=== PATIENT | female | born 1940 | race Caucasian/White ===

== ENCOUNTER 2016-12-15 09:47 | Inpatient (IN) ==
--- NOTE | 2016-12-15 11:11 | Diag Imaging Result Doc PS360 ---
FACIAL BONES W/O CONTRAST - 12/15/2016 INDICATION: fall with multiple contusions to face TECHNIQUE: A CT dose reduction protocol was used. COMPARISON: None FINDINGS: There is a small left-sided forehead soft tissue contusion to the scalp. No facial bone fractures. The sinuses are clear. There is note of a small torus palatinus, a benign variant. IMPRESSION: Forehead contusion. No fractures. Electronically signed by Cory Meade 12/15/2016 11:09 AM
--- NOTE | 2016-12-15 11:16 | Diag Imaging Result Doc PS360 ---
HEAD/C-SPINE W/O CONTRAST - 12/15/2016 INDICATION: fall with injury; no LOC; on ASA TECHNIQUE: A CT dose reduction protocol was used. COMPARISON: 01/15/2016, 12/19/2014 FINDINGS: Head CT: There is a small anterior scalp contusion at the frontal scalp. No fractures. No intracranial mass or hemorrhage. The ventricles and sulci are normal. Cervical spine: There is no fracture or subluxation. There is mild degenerative disc disease notably at C5-6 and C6-7. There is also moderate multilevel facet degeneration. No central canal stenosis. There is heavy calcification of the left carotid bulb as was documented on the neck angiogram from 2014. IMPRESSION: Forehead scalp contusion. Otherwise no acute injuries. Electronically signed by Cory Meade 12/15/2016 11:13 AM
[2016-12-15 12:05] LABS: MANUAL DIFF NEEDED? NO
[2016-12-15 12:13] LABS: EOS# 0.01 X1000 (0.0-0.7); EOS% 0.1 % (0.0-10.0); HEMATOCRIT 35.3 % (37.0-47.0); HEMOGLOBIN 13.3 g/dL (12.0-16.0); IMM GRAN# 0.04 X1000 (0.0-0.04); IMM GRAN% 0.3 % (0.0-0.5); LYMPH# 0.43 X1000 (1.2-3.4); LYMPH% 2.9 % (20.5-51.1); MCH 29.6 PG (27-31); MCHC 37.7 g/dL (33-37); MCV 78.6 FL (81-99); MONO# 1.32 X1000 (0.11-0.59); MONO% 8.8 % (1.7-9.3); MPV 9.6 FL (7.4-10.4); NEUT% 87.9 % (42.2-75.2); PLT 180 X1000 (130-400); RBC 4.49 XMIL (4.2-5.4)
--- NOTE | 2016-12-15 12:29 | PROVIDER DOCUMENTATION ---
This chart was entered by Snehal Villagomez Scribe, acting as scribe for Marii Birmingham PA. HPI-General Adult - General Source: patient - History of Present Illness -Gen Adult Nature of Presenting Problems: 76 yo F presents to the ER with complaint of a fall last night. Denies any dizziness or LOC, states she felt weak after the fall but could get up and go back to bed. Has L sided facial pain, swelling, and bruising. States she has had a kidney infection recently and is being treated with Cipro, has nausea associated with the kidney infection, not fall. Denies any blurry vision. Pt states she feels like she is dehydrated. Location of Pain/Injury: reports: face, neck Onset/Duration: reports: last night <Marii Birmingham - Last Filed: 12/15/16 13:17> - General Source: patient <Manolo De León - Last Filed: 12/16/16 13:16> - General Chief Complaint: Fall Stated Complaint: FALL Time Seen by Provider: 12/15/16 10:41 Allergies/Adverse Reactions: Patient Allergies Allergy/AdvReac Type Severity Reaction Status Date / Time No Known Allergies Allergy Verified 01/15/16 09:08 Home Medications: Home Medication List Medication Instructions Recorded Confirmed Last Taken Type Biotin 1,000 cap PO DAILY 05/26/12 12/15/16 12/19/14 08:00 History Cholecalciferol (Vit D3) [Vitamin 1,000 unit PO DAILY 05/26/12 12/15/16 08:00 History D3] Fish Oil/Dha/Epa [Fish Oil 1,200 1 cap PO DAILY 05/26/12 12/15/16 12/19/14 08: 00 History mg Fish Oil] Multivitamin [Multi-Day Vitamins] 1 tab PO DAILY 05/26/12 12/15/16 12/19/14 08: 00 History Lovastatin 40 mg PO DAILY 12/19/14 12/15/16 12/19/14 21:00 History Aspirin 81 mg PO DAILY #0 chewtab 12/21/14 12/15/16 Unknown Rx Esomeprazole [Nexium] 40 mg PO DAILY #0 capsule 12/21/14 12/15/16 Unknown Rx Gabapentin [Neurontin] 300 mg PO DAILY #0 capsule 12/21/14 12/15/16 Unknown Rx Magnesium 250 mg PO DAILY 01/15/16 12/15/16 Unknown History Oxybutynin [Ditropan] 10 mg PO DAILY 01/15/16 12/15/16 Unknown History Alprazolam [Alprazolam] 1 mg PO QHS 12/15/16 12/15/16 12/15/16 History Estradiol Vaginal Cream [Estrace 1 gm TOP DAILY 12/15/16 12/15/16 Unknown History Vaginal Cream] Losartan [Cozaar] 100 mg PO DAILY 12/15/16 12/15/16 12/15/16 History Meloxicam 7.5 mg PO DAILY 12/15/16 12/15/16 Unknown History Triamterene/Hydrochlorothiazid 1 each PO DAILY 12/15/16 12/15/16 Unknown History [Triamterene-Hctz 37.5-25 mg Cp] Triamterene/Hydrochlorothiazid 37.5 each PO DAILY 12/15/16 12/15/16 12/15/16 History [Triamterene-Hctz 37.5-25 mg Cp] Review of Systems - Adult - REVIEW OF SYSTEMS - ADULT Constitutional: denies: chills, fever Eyes: denies: decreased vision, blurred vision Ears, Nose, Mouth & Throat: reports: no symptoms reported Cardiovascular: denies: chest pain, palpitations Respiratory: denies: cough, shortness of breath Gastrointestinal: reports: nausea. denies: diarrhea, vomiting Genitourinary: reports: no symptoms reported Musculoskeletal: reports: joint pain, neck pain Integumentary: reports: no symptoms reported Neurological: denies: dizziness/vertigo, headache/migraines Psychiatric: reports: no symptoms reported Endocrine: reports: no symptoms reported Hematologic/Lymphatic: reports: no symptoms reported Allergic/Immunologic: reports: no symptoms reported All Other Systems: Reviewed and Negative <Marii Birmingham - Last Filed: 12/15/16 13:17> - REVIEW OF SYSTEMS - ADULT Constitutional: reports: no symptoms reported <Manolo De León - Last Filed: 12/16/16 13:16> Past History - Adult - PAST MEDICAL HISTORY-ADULT Review of Records: reports: Nursing Assessment Review, Medications Reviewed Cardiovascular: reports: HTN - PRIOR SURGERIES/PROCEDURES Surgical/Procedure History: reports: cholecystectomy, other (artery repair) - IMMUNIZATION STATUS Childhood Immunizations: See Nurse Assessment Flu Vaccine: See Nurse Assessment - FAMILY HISTORY Family History: reviewed, not pertinent <Marii Birmingham - Last Filed: 12/15/16 13:17> - PAST MEDICAL HISTORY-ADULT Review of Records: reports: Old Records Reviewed, Nursing Assessment Review, Medications Reviewed <Manolo De León - Last Filed: 12/16/16 13:16> Physical Exam-General - PHYSICAL EXAM-ADULT Initial Vital Signs Reviewed: Yes - CONSTITUTIONAL General Appearance: alert, no apparent distress - EYES Eyes: PERRL/EOMI, pink conjunctivae - HEAD, EARS, NOSE, MOUTH & THROAT HENMT: TMs normal, pharynx normal, other (L sided facial tenderness and swelling , full jaw ROM) - NECK Neck: supple, normal inspection, C-spine tenderness - RESPIRATORY Respiratory: no respiratory distress, no accessory muscle use - CARDIOVASCULAR Cardiovascular: normal peripheral pulses, regular rate, rhythm - GASTROINTESTINAL (ABDOMEN) Abdominal Exam: normal bowel sounds, non tender, soft - MUSCULOSKELETAL Back Exam: no CVA tenderness, no vertebral tenderness Extremity: normal range of motion, non-tender, normal gait, normal inspection - SKIN Integumentary: warm/dry, ecchymosis (L frontal and orbital) - NEUROLOGIC Neurologic: prior authorization technician II-XII nml as tested, grossly normal, no motor/sensory deficits - PSYCHIATRIC Psych/Mental Status: normal mood/affect, normal thought content, normal thought process, oriented x 3 <Marii Birmingham - Last Filed: 12/15/16 13:17> - PHYSICAL EXAM-ADULT Initial Vital Signs Reviewed: Yes - CONSTITUTIONAL General Appearance: appears well <Manolo De León - Last Filed: 12/16/16 13:16> Progress - PLAN OF CARE/RESULTS Progress/Plan/Lab Results: Vital Signs - 8 hr 12/15/16 09:50 Temperature 98 F Pulse Rate 64 Respiratory Rate 18 Blood Pressure 149/91 O2 Sat by Pulse Oximetry 94 L Orders Category Date Time Status FACIAL BONES W/O CONTRAST [CT] Stat Exams 12/15/16 10:10 Completed HEAD/C-SPINE W/O CONTRAST [CT] Stat Exams 12/15/16 10:10 Completed Result Diagrams: 12/15/16 11:55 12/15/16 11:55 - CT/MRI 1 CT Study: Cervical Spine, Head Impression: See EMR Report (forehead scalp contusion. Otherwise no acute injuries. -per Dr. Meade) - CONSULTS/PCP/HOSPITALIST Notification #1 *Consult/PCP/Hospitalist*: Dr. Shearer Time Discussed: 13:17 Reason/Comments: hyponatremia Consult Disposition: Admit <Marii Birmingham - Last Filed: 12/15/16 13:17> - PLAN OF CARE/RESULTS Progress/Plan/Lab Results: Laboratory Results - last 24 hr 12/15/16 12/15/16 12/15/16 11:55 11:55 13:00 Serum Osmolality 219 L TSH 0.93 Free T4 1.42 Urine Source CLEAN CATCH Urine Color YELLOW Urine Clarity CLEAR Urine pH 7.0 Ur Specific [place] 1.000 Urine Protein TRACE A Urine Ketones NEGATIVE Urine Blood 4+ Urine Nitrite NEGATIVE Urine Bilirubin NEGATIVE Urine Urobilinogen NORMAL Urine Microscopic RBC <10 Urine WBC NEGATIVE Urine Microscopic WBC <10 Ur Epithelial Cells <10 Small Round Cells TRANSITIONAL PRESENT Urine Bacteria NEGATIVE Urine Osmolality Ur Random Sodium Urine Glucose NEGATIVE 12/15/16 12/15/16 13:00 13:00 Serum Osmolality TSH Free T4 Urine Source Urine Color Urine Clarity Urine pH Ur Specific [place] Urine Protein Urine Ketones Urine Blood Urine Nitrite Urine Bilirubin Urine Urobilinogen Urine Microscopic RBC Urine WBC Urine Microscopic WBC Ur Epithelial Cells Small Round Cells Urine Bacteria Urine Osmolality 236 L Ur Random Sodium 57 Urine Glucose Orders Category Date Time Status Admit - [facility] Routine AdmDCTranf 12/15/16 13:44 Ordered Activity - Bed Rest with BRP ORDERED Care 12/15/16 13:44 Active Call Admitting on Arrival AT ADMISSION Care 12/15/16 13:44 Completed Neurological Check PRN Care 12/15/16 13:44 Active Saline Loc NOW Care 12/15/16 12:39 Completed Vital Signs Order Q 4-HR ASSESS Care 12/15/16 13:44 Active FACIAL BONES W/O CONTRAST [CT] Stat Exams 12/15/16 10:10 Completed HEAD/C-SPINE W/O CONTRAST [CT] Stat Exams 12/15/16 10:10 Completed CBC WITH DIFF [HEME] Stat Lab 12/15/16 11:55 Completed CMP [COMPREHENSIVE METABOLIC PANEL] [CHEM] Stat Lab 12/15/16 11:55 Completed FREE T4 Stat Lab 12/15/16 11:55 Completed MAGNESIUM [CHEM] Stat Lab 12/15/16 11:55 Completed TSH Stat Lab 12/15/16 11:55 Completed UR SODIUM [URCHEM] Stat Lab 12/15/16 13:[address] W/POSS RFLX CULT [URINALYSIS] Stat Lab 12/15/16 13:00 Completed 0.9% Sodium Chloride Inj [Ns] 1,000 ml Med 12/15/16 12:40 Discontinued IV 125 mls/hr Transfer/Admit Order [TRANSFER] Routine Transfer 12/15/16 13:45 Completed Result Diagrams: 12/16/16 04:25 12/16/16 04:25 <Manolo De León - Last Filed: 12/16/16 13:16> Departure - Departure Date of Disposition Decision: 12/15/16 Time of Disposition Decision: 12:30 Certified Medical Emergency: Emergent <Marii Birmingham - Last Filed: 12/15/16 13:17> - Departure Date of Disposition Decision: 12/15/16 Time of Disposition Decision: 12:30 Certified Medical Emergency: Emergent - Critical Care Note This patient required my direct & personal management of CC.: No <Manolo De León - Last Filed: 12/16/16 13:16> - Departure DIAGNOSIS: Weakness, Hyponatremia Carotid stenosis Qualifiers: Laterality: left Qualified Code(s): I65.22 - Occlusion and stenosis of left carotid artery Fall Qualifiers: Encounter type: initial encounter Qualified Code(s): W19.XXXA - Unspecified fall, initial encounter Facial contusion Qualifiers: Encounter type: initial encounter Qualified Code(s): S00.83XA - Contusion of other part of head, initial encounter UTI (urinary tract infection) Qualifiers: Urinary tract infection type: acute cystitis Disposition: ADMITTED INPATIENT 09 Condition: Stable This chart was documented by the indicated scribe, (Snehal Villagomez Scribe) and accurately reflects the services I performed and decisions made by me, Marii Birmingham PA, as attested by the provider's signature.
[2016-12-15 12:33] LABS: AGAP 8; ALBUMIN 4.1 g/dL (3.5-5.0); ALKALINE PHOSPHATASE 83 U/L (32-104); BUN 9 mg/dL (8-22); CALCIUM 9.1 mg/dL (8.8-10.2); CHLORIDE 71 mmol/L (98-107); COSMO 216; GOT 137 U/L (10-30); GPT 39 U/L (10-36); POTASSIUM 3.6 mmol/L (3.5-5.1); TCO2 27 mmol/L (25-35); TOTAL PROTEIN 6.8 g/dL (6.3-8.3)
[2016-12-15 12:34] LABS: SODIUM 106 mmol/L (136-145)
[2016-12-15] MEDS ORDERED: NS 1,000 ML IV ONE (12:40)
[2016-12-15 13:16] LABS: FREE T4 1.42 ng/dL (0.93-1.70)
[2016-12-15 13:30] LABS: URINE CULTURE PL NEEDED? NO
[2016-12-15 13:58] LABS: BILIRUBIN URINE NEGATIVE (NEGATIVE); BLOOD URINE 4+ (NEGATIVE); CLARITY CLEAR (CLEAR); COLOR YELLOW; GLUCOSE URINE NEGATIVE (NEGATIVE); LEUKOCYTES URINE NEGATIVE (NEGATIVE); NITRITE URINE NEGATIVE (NEGATIVE); PROTEIN URINE TRACE mg/dL (NEGATIVE); UROBILINOGEN URINE NORMAL
[2016-12-15 14:09] LABS: URINE SOURCE CLEAN CATCH
[2016-12-15 14:10] LABS: URINE EPITHELIAL CELLS <10 /HPF (<10); URINE RBC <10 /HPF (<10); URINE SMALL ROUND CELLS TRANSITIONAL PRESENT; URINE WBC <10 /HPF (<10)
[2016-12-15] MEDS ORDERED: MAGNESIUM SULFATE 2 GM/S.W.I. 2 GM/50 ML IVPB IV ONE (17:01)
[2016-12-15] MEDS ORDERED: PROTONIX IV SCH (18:00)
[2016-12-15] MEDS ORDERED: SODIUM CHLORIDE 0.9% INJ SCH (18:00)
[2016-12-15] MEDS: ZOFRAN IV PRN (18:26)
[2016-12-15] MEDS: ROCEPHIN 1 GM/NS 1 GM/50 ML IVPB IV SCH (18:28)
[2016-12-15 19:19] LABS: AGAP 10; BUN 7 mg/dL (8-22); CALCIUM 8.4 mg/dL (8.8-10.2); CHLORIDE 68 mmol/L (98-107); COSMO 210; POTASSIUM 3.2 mmol/L (3.5-5.1); SODIUM 103 mmol/L (136-145); TCO2 25 mmol/L (25-35)
--- NOTE | 2016-12-15 19:26 | HISTORY AND PHYSICAL ---
CHIEF COMPLAINT: Fall. HISTORY OF PRESENT ILLNESS: This is a 76-year-old female with a history of hypertension and gastroesophageal reflux disease. She presented to the emergency room after falling. She stated that she got up through the night and fell. She was unable to get up and get back to bed. Therefore, she called for help and was brought in by EMS. She denied any loss of consciousness. Of note, the patient was seen in the emergency room on the for nausea and vomiting and urinary tract infection symptoms. She complained of left flank pain as well as frequency and urgency. Urinalysis was performed as well as culture. She was prophylactically sent home on Cipro with instructions to follow up with her primary care physician. She stated that since the emergency room visit she has been increasingly weak, having trouble holding her balance, being forgetful. She is confused at this time and she is unable to give of an accurate account of the events of last week. Family members were not present so it is unknown exactly how much she was vomiting and how much p.o. intake she was able to obtain. She was found to have a sodium of 106 with a chloride 71 and a magnesium of 1.3. She was given gentle hydration and is being admitted for further evaluation and treatment. PAST MEDICAL HISTORY: Hypertension, frequent UTI, gastroesophageal reflux disease. PAST SURGICAL HISTORY: Cholecystectomy, cataract removal. SOCIAL HISTORY: She denies alcohol, tobacco, and illicit drug use. She does have family members that are close by and very active in her care. ALLERGIES: No known drug allergies. HOME MEDICATIONS: Triamterene hydrochlorothiazide 37.5/25 one daily, Meloxicam daily, aspirin 81 mg daily, magnesium 250 p.o. daily, Nexium 40 daily, Neurontin 300 mg daily, Xanax 1 mg at bedtime, and Cozaar 100 mg daily. REVIEW OF SYSTEMS: Unable to obtain from the patient as she is confused. PHYSICAL EXAMINATION: GENERAL: This is a 76-year-old female, who is lying in the bed, in no distress. VITAL SIGNS: Blood pressure is 161/77, heart rate 78, respirations are 18, temperature is 99.3 degrees oral, with room air saturation of 98%. HEENT: Head is normocephalic, atraumatic. Pupils equal, round, react to light. EOMs are intact. Sclerae are anicteric. Mucous membranes are dry. NECK: Supple with trachea midline. CARDIOVASCULAR: Regular rate and rhythm. S1 and S2 appreciated. PULMONARY: Breath sounds are clear. No increased work of breathing noted. GASTROINTESTINAL: Abdomen is soft, nontender, nondistended with bowel sounds in all 4 quadrants. MUSCULOSKELETAL: Good range of motion to joints. SKIN: Warm and dry with bruises noted to her left frontal and orbital area, as well as her left arm, her left shoulder, and her left side. NEUROLOGIC: She is oriented to herself and her family members only. DIAGNOSTICS: Sodium is 106, potassium 3.6, chloride 71, CO2 27, BUN 9, creatinine 0.8, with a glucose of 121, magnesium is 1.3. Total bilirubin 1.30, with AST of 137, ALT of 39. TSH is 0.93. CT of the head and cervical spine and facial bones reveal no acute processes. Urine culture from December 13 is growing gram-negative rods. ASSESSMENT: 1. Hyponatremia. 2. Fall. 3. Confusion, most likely secondary to #1. 4. Hypomagnesemia. 5. Urinary tract infection with gram-negative rods. 6. Elevated liver function tests. PLAN: She was admitted to the floor and placed on telemetry. She is confused at this time. She is very unsteady on her feet. We will repeat her BMP. If sodium has not improved greatly then she will be moved to ICU for closer monitoring. In talking to the patient, she does take diuretics and we are unsure exactly how long she was vomiting or if she has taken any extra medications. We will hold all of her p.o. medications at present. Give hydration. We will have her NPO except for ice chips. Zofran for nausea. We will give Protonix. We will monitor her electrolytes and replete as appropriate. We will start Rocephin for antibiotic coverage and once urine culture and sensitivities are finalized then antibiotics may be changed as appropriate according to sensitivity results. We will get hyponatremia labs. For DVT prophylaxis, will use SCDs, holding off on any anticoagulation as she has been falling quite often. For GI prophylaxis, Protonix. Further treatments pending hospital course. Dictated by MILA Durbin for Russel Shearer MD cc: MILA Durbin MD
[2016-12-15] MEDS: NACL 3% 500 ML IV SCH (19:50)
[2016-12-15] MEDS: XANAX PO SCH (20:12)
[2016-12-15] MEDS: NS 1,000 ML IV SCH (20:22)
[2016-12-16 01:42] LABS: AGAP 8; BUN 6 mg/dL (8-22); CALCIUM 8.5 mg/dL (8.8-10.2); CHLORIDE 72 mmol/L (98-107); COSMO 215; POTASSIUM 3.1 mmol/L (3.5-5.1); TCO2 26 mmol/L (25-35)
[2016-12-16 01:46] LABS: SODIUM 106 mmol/L (136-145)
[2016-12-16] MEDS: NS 1,000 ML IV SCH ×2 (06:09→13:59)
[2016-12-16 06:50] LABS: HEMATOCRIT 34.6 % (37.0-47.0); HEMOGLOBIN 12.9 g/dL (12.0-16.0); MCH 29.3 PG (27-31); MCHC 37.3 g/dL (33-37); MCV 78.6 FL (81-99); MPV 10.1 FL (7.4-10.4); RBC 4.4 XMIL (4.2-5.4)
[2016-12-16 06:53] LABS: AGAP 10; ALBUMIN 3.8 g/dL (3.5-5.0); ALKALINE PHOSPHATASE 83 U/L (32-104); BUN 6 mg/dL (8-22); CALCIUM 8.3 mg/dL (8.8-10.2); CHLORIDE 73 mmol/L (98-107); COSMO 217; GOT 143 U/L (10-30); GPT 49 U/L (10-36); MAGNESIUM 1.8 mg/dL (1.5-2.7); TCO2 25 mmol/L (25-35); TOTAL PROTEIN 5.9 g/dL (6.3-8.3)
[2016-12-16 06:55] LABS: SODIUM 108 mmol/L (136-145)
[2016-12-16] MEDS ORDERED: KLOR-CON PO ONE (07:03)
[2016-12-16] MEDS ORDERED: NS 1,000 ML IV SCH (07:03)
--- NOTE | 2016-12-16 07:27 | Diag Imaging Result Doc PS360 ---
EXAM: CHEST-PORTABLE HISTORY: Hyponatremia TECHNIQUE: Portable AP COMPARISON: 02/18/2015 FINDINGS: The lungs are well expanded. The heart is mildly prominent. The vessels are not distended. No consolidation. No pleural effusions identified. IMPRESSION: Borderline mildly prominent heart. Electronically signed by Jordan Caballero 12/16/2016 7:25 AM
[2016-12-16] MEDS: NACL 3% 500 ML IV SCH (09:13)
[2016-12-16] MEDS: NORVASC PO SCH (11:05)
--- NOTE | 2016-12-16 11:55 | Diag Imaging Result Doc PS360 ---
EXAM: US ABDOMEN-COMPLETE HISTORY: Transaminasemia; Severe Hyponatremia TECHNIQUE: COMPARISON: None. FINDINGS: No aneurysmal dilatation to the abdominal aorta. Normal pancreatic head and body. Pancreatic tail is obscured. Normal inferior vena cava. I believe there is fatty infiltration of the liver. No focal hepatic abnormality. The gallbladder has been removed. The common bile duct measures 4 mm. Normal right kidney. No hydronephrosis. Normal spleen. The left kidney is atrophic possibly measuring only 5.3 cm in length. However, there appears to be a 2.5 cm mass on the lower pole. No hydronephrosis. IMPRESSION: 1.Cholecystectomy 2.Possible left lower renal mass. A CT is suggested. Electronically signed by Jordan Caballero 12/16/2016 11:52 AM
[2016-12-16 13:23] LABS: AGAP 10; BUN 6 mg/dL (8-22); CALCIUM 8.2 mg/dL (8.8-10.2); CHLORIDE 80 mmol/L (98-107); COSMO 234; POTASSIUM 3.2 mmol/L (3.5-5.1); TCO2 27 mmol/L (25-35)
[2016-12-16 13:24] LABS: SODIUM 116 mmol/L (136-145)
--- NOTE | 2016-12-16 14:22 | Diag Imaging Result Doc PS360 ---
EXAM: THORAX/ABDOMEN/PELVIS HISTORY: Renal Mass TECHNIQUE: CT chest abdomen and pelvis with intravenous contrast. COMPARISON: Compared to a chest from 03/25/2011 and an abdomen and pelvis from 01/23/2016. FINDINGS: Chest: No pleural effusions. The heart is mildly enlarged. No thoracic aortic aneurysm or dissection. No enlarged mediastinal or hilar lymph nodes. There are several small calcified subcarinal lymph nodes. Minimal scarring and atelectasis in the lower lungs. No consolidation. No bronchiectasis. Minimal emphysematous changes. I do not identify a lung mass. Abdomen and pelvis: The gallbladder has been removed. There is fatty infiltration of the liver. Normal spleen, pancreas, and adrenal glands. Mild perinephric inflammation. The upper and mid left kidney are markedly atrophic. Normal parenchyma inferiorly. This is normal parenchyma gives the appearance of a mass on ultrasound. No renal mass is identified. Normal enhancement of the right kidney. No hydronephrosis. No aortic aneurysm. No bowel obstruction. There are scattered distal colonic diverticula. Normal appendix. No abscess. The urinary bladder is distended and appears normal. The uterus is small. No pelvic mass. IMPRESSION: Chest: 1. Cardiomegaly 2. Minimal emphysematous changes 3. Basilar atelectasis and/or fibrosis Abdomen and pelvis: 1. Cholecystectomy 2. Fatty infiltration of liver 3. Atrophic upper and mid left kidney. No renal mass. 4. Diverticulosis Electronically signed by Jordan Caballero 12/16/2016 2:20 PM
[2016-12-16] MEDS ORDERED: TYLENOL PO PRN (16:35)
[2016-12-16] MEDS: ROCEPHIN 1 GM/NS 1 GM/50 ML IVPB IV SCH (17:24)
[2016-12-16] MEDS ORDERED: NORCO-5 PO PRN (18:44)
[2016-12-16] MEDS: PROTONIX PO SCH (20:15)
[2016-12-16] MEDS: XANAX PO SCH (20:15)
[2016-12-17 09:14] LABS: AGAP 9; ALBUMIN 3.6 g/dL (3.5-5.0); ALKALINE PHOSPHATASE 77 U/L (32-104); BUN 7 mg/dL (8-22); CALCIUM 8.9 mg/dL (8.8-10.2); CHLORIDE 88 mmol/L (98-107); COSMO 246; GOT 93 U/L (10-30); GPT 51 U/L (10-36); POTASSIUM 3.2 mmol/L (3.5-5.1); SODIUM 123 mmol/L (136-145); TCO2 26 mmol/L (25-35); TOTAL PROTEIN 6.3 g/dL (6.3-8.3)
[2016-12-17] MEDS: NORVASC PO SCH (11:26)
[2016-12-17] MEDS ORDERED: KLOR-CON PO ONE (13:01)
[2016-12-17] MEDS: ZOFRAN IV PRN (14:00)
[2016-12-17] MEDS: NS 1,000 ML IV SCH (15:53)
[2016-12-17] MEDS: ROCEPHIN 1 GM/NS 1 GM/50 ML IVPB IV SCH (17:46)
[2016-12-17] MEDS: XANAX PO SCH (20:34)
[2016-12-17] MEDS: PROTONIX PO SCH (20:34)
[2016-12-18 06:17] LABS: MANUAL DIFF NEEDED? NO
[2016-12-18 06:23] LABS: BASO% 0.1 % (0.0-0.8); EOS# 0.08 X1000 (0.0-0.7); EOS% 1.2 % (0.0-10.0); HEMATOCRIT 36.1 % (37.0-47.0); HEMOGLOBIN 12.3 g/dL (12.0-16.0); IMM GRAN# 0.03 X1000 (0.0-0.04); IMM GRAN% 0.4 % (0.0-0.5); LYMPH# 0.69 X1000 (1.2-3.4); LYMPH% 10.2 % (20.5-51.1); MCH 28.9 PG (27-31); MCHC 34.1 g/dL (33-37); MCV 84.7 FL (81-99); MONO# 0.88 X1000 (0.11-0.59); MPV 9.6 FL (7.4-10.4); NEUT% 75.1 % (42.2-75.2); PLT 196 X1000 (130-400); RBC 4.26 XMIL (4.2-5.4)
[2016-12-18 06:45] LABS: ALBUMIN 3.5 g/dL (3.5-5.0); POTASSIUM 3.7 mmol/L (3.5-5.1); TOTAL BILIRUBIN 0.6 mg/dL (0.20-1.00); TOTAL PROTEIN 5.9 g/dL (6.3-8.3)
[2016-12-18] MEDS: NEURONTIN PO SCH (09:09)
[2016-12-18] MEDS: NORVASC PO SCH (09:09)
[2016-12-18 15:01] LABS: URINE SOURCE CLEAN CATCH
[2016-12-18 15:18] LABS: BILIRUBIN URINE NEGATIVE (NEGATIVE); BLOOD URINE NEGATIVE (NEGATIVE); CLARITY CLEAR (CLEAR); COLOR YELLOW; GLUCOSE URINE NEGATIVE (NEGATIVE); LEUKOCYTES URINE TRACE (NEGATIVE); NITRITE URINE NEGATIVE (NEGATIVE); PH URINE 6.5; PROTEIN URINE TRACE mg/dL (NEGATIVE); SP GRAVITY URINE 1.005; URINE MICROSCOPIC NEEDED? YES; UROBILINOGEN URINE NORMAL
[2016-12-18 15:21] LABS: URINE CAST NONE SEEN /LPF; URINE CRYSTAL NONE SEEN /HPF; URINE EPITHELIAL CELLS <10 /HPF (<10); URINE WBC <10 /HPF (<10)
[2016-12-18] MEDS: ROCEPHIN 1 GM/NS 1 GM/50 ML IVPB IV SCH (17:17)
[2016-12-18] MEDS: XANAX PO SCH (20:00)
[2016-12-18] MEDS: PROTONIX PO SCH (20:00)
[2016-12-19 06:32] LABS: AGAP 9; BUN 15 mg/dL (8-22); CALCIUM 8.9 mg/dL (8.8-10.2); CHLORIDE 97 mmol/L (98-107); COSMO 267; POTASSIUM 3.6 mmol/L (3.5-5.1); SODIUM 133 mmol/L (136-145); TCO2 28 mmol/L (25-35)
[2016-12-19] MEDS: NEURONTIN PO SCH (09:33)
[2016-12-19] MEDS: NORVASC PO SCH (09:34)
--- NOTE | 2016-12-19 11:53 | PROGRESS NOTE ---
DATE: 12/19/2016 PRIMARY CARE: Milla Prater MD. SUBJECTIVE: Patient notes that she is feeling much better at this point. Denies any chest pain, palpitations. Denies any fevers or chills. States that she is still weak and tired. PHYSICAL: Vital signs: Temperature 98, pulse 58, respiratory 18, blood pressure 175/79 to 138/77, saturation 96% on room air. General: Patient is awake, alert. Currently she is in no respiratory distress. Pleasant to talk with. Neck: Supple. CARDIOVASCULAR: Regular rate. Chest: Clear. Abdomen: Soft. Extremities: Moves all extremities. LABORATORY: Sodium 133, creatinine 0.9. ASSESSMENT: 1. Severe hyponatremia, improved. Sodium was 103 on admit, currently 133. 2. Hypokalemia, resolved. 3. Hyperglycemia, improved. 4. Acute hepatitis continues to improve. Abdominal ultrasound was essentially negative. The liver, CT simply shows fatty liver. 5. Adult failure to thrive. Patient continues to have issues with falling and weakness. 6. Confusion, resolved. 7. Hypomagnesemia, resolved. 8. Escherichia coli urinary tract infection. Patient currently is on Rocephin to which her urinary tract infection should be sensitive. PLAN: We will continue to follow. We will saline lock. Discontinue telemetry at this point and will follow. cc: MD Milla Mariee MD
[2016-12-19] MEDS: KEFLEX PO SCH (20:13)
[2016-12-19] MEDS: PROTONIX PO SCH (20:13)
[2016-12-19] MEDS: XANAX PO SCH (20:13)
[2016-12-20] MEDS: KEFLEX PO SCH ×4 (02:36→21:35)
[2016-12-20] MEDS: NEURONTIN PO SCH (08:19)
[2016-12-20] MEDS: NORVASC PO SCH (08:19)
[2016-12-20] MEDS ORDERED: NORVASC PO SCH (09:16)
--- NOTE | 2016-12-20 11:52 | PROGRESS NOTE ---
DATE: 12/20/2016 SUBJECTIVE: The patient notes she has actually started to feel a little bit stronger. With help, she was able to get to the restroom. Denies any lightheadedness or dizziness. Denies any chest pain or palpitations. Denies any GI or issues currently. PHYSICAL EXAMINATION: Vital Signs: Temperature 98.2, pulse 75, respiratory rate 18, BP 149/101 to 153/74, saturation 95% on room air. General: Patient is awake, alert, oriented. Currently in no respiratory distress. Pleasant to talk with. Lying flat in the bed. She is in no respiratory distress. HEENT: Normocephalic, atraumatic. APOLONIA. Neck: Supple. CV: Regular rate. Chest: Relatively clear, nonlabored. No wheezing. Abdomen: Soft, nondistended, nontender. Extremities: Moves all extremities. No edema. Skin: Warm and dry. No rashes. LABS: CBC normal. Sodium 133. ASSESSMENT: 1. Hyponatremia. Sodium was 103 on admission, currently up to 133. 2. Adult failure to thrive. Patient still is having difficulty ambulating without assistance. 3. Acute hepatitis. Continues to improve. 4. Hypertension. We will increase Norvasc from 2.5-5 daily. PLAN: We will recheck her labs in the a.m. We will continue to follow. She is starting to eat and drink better. Hopefully, can transition to rehab when bed available. cc: MD Milla Mariee MD
[2016-12-20] MEDS: PROTONIX PO SCH (21:35)
[2016-12-20] MEDS: XANAX PO SCH (23:29)
[2016-12-21] MEDS: KEFLEX PO SCH ×2 (02:10→08:06)
[2016-12-21 05:42] LABS: HEMATOCRIT 37.5 % (37.0-47.0); HEMOGLOBIN 12.8 g/dL (12.0-16.0); MCH 30.1 PG (27-31); MCHC 34.1 g/dL (33-37); MCV 88.2 FL (81-99); MPV 9.2 FL (7.4-10.4); RBC 4.25 XMIL (4.2-5.4)
[2016-12-21 06:07] LABS: ALBUMIN 3.4 g/dL (3.5-5.0); CALCIUM 9.2 mg/dL (8.8-10.2); POTASSIUM 3.4 mmol/L (3.5-5.1); TOTAL BILIRUBIN 0.6 mg/dL (0.20-1.00); TOTAL PROTEIN 6.2 g/dL (6.3-8.3)
[2016-12-21 06:16] LABS: FREE T4 1.45 ng/dL (0.93-1.70)
[2016-12-21] MEDS: NEURONTIN PO SCH (08:06)
--- NOTE | 2016-12-21 11:41 | DISCHARGE SUMMARY ---
ADMISSION DATE: 12/15/2016 DISCHARGE DATE: 12/21/2016 DISCHARGE DIAGNOSES: 1. Fall with left-sided facial contusion secondary to generalized weakness and severe hyponatremia. 2. Urinary tract infection, that has improved. 3. Transaminasemia of unknown etiology. 4. Hypertension. HOSPITAL COURSE: Ms. Jacob is a 76-year-old female who was admitted to the hospital after she presented to the emergency room with falling and having left- sided facial contusion. She was found to have some confusion and was noted to have severe hyponatremia with a sodium level of 106. She was also noted to have hypomagnesemia with magnesium level of 1.3 and transaminasemia with AST levels of 137. She was admitted to the intensive care unit and was initially given IV normal saline, along with IV 3% saline, with which she had minimal improvement with sodium levels going up to 108. Her urinary tract infection was treated with intravenous ceftriaxone. She had an abdominal ultrasound because of transaminasemia. That showed possible left lower renal mass and a CT scan was therefore suggested. We did have a chest x-ray of this patient to make sure she does not have any lung malignancy because of severe hyponatremia. There was borderline mild cardiomegaly on this chest x-ray. Subsequently she underwent a chest, abdomen, and pelvis CT scanning that showed cardiomegaly along with minimal emphysematous changes and bibasilar atelectasis on her chest CT. She also had fatty infiltration of liver but there was no renal mass. Diverticulosis was noted, however. The patient was ultimately treated with fluid restrictions with which her condition gradually improved and her sodium levels have increased to 133. Her confusion has improved and she has been feeling well, although she remains having generalized weakness. 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 Also her transaminasemia could be secondary to lovastatin that the patient was taking and that will also be discontinued at this time. Since patient's condition has improved she is ready to be discharged from the hospital , although she has remained having generalized weakness and therefore, she will need rehabilitation. We will therefore transfer her to a rehab facility. DISCHARGE MEDICATIONS: 1. Amlodipine 5 mg orally once daily. 2. Gabapentin 300 mg orally once daily at bedtime. 3. Fourmile 5 mg orally every 6 hours as needed for pain. 4. Alprazolam 1 mg orally once daily at bedtime as needed for insomnia. 5. Aspirin 81 mg orally once daily. 6. Mobic 7.5 mg orally once daily as needed for osteoarthritis. 7. Nexium 40 mg orally once daily. 8. Fish oil 1200 mg orally once daily. 9. Vitamin D3 1000 units orally once daily. 10. Oxybutynin XL 10 mg orally once daily. 11. Estradiol vaginal cream 1 g locally 3 times a week. FOLLOW-UP: She will follow up with me at the office in approximately 1 week. CONDITION: Stable. DISPOSITION: [facility]. TIME SPENT: A total of more than 40 minutes were spent taking care of patient today. cc: Milla Prater MD MTDD
[2016-12-21 12:11] VITALS: BP 149/86
== END 2016-12-21 13:42 ==
LOC: P.ED 09:47 → SUATTDRO 14:06 → P.MEDSURG 14:06 → P.ICU 19:32 → P.MEDSURG 12-17 15:26
PROVIDERS: ADMIT Internal Medicine; ATTEND Internal Medicine

== ENCOUNTER 2018-08-22 10:49 | Inpatient (IN) ==
[2018-08-22] MEDS ORDERED: TYLENOL PO ONE (11:02)
[2018-08-22 11:38] LABS: BASO# 0.01 X1000 (0.0-0.2); BASO% 0.1 % (0.0-0.8); EOS# 0.01 X1000 (0.0-0.7); EOS% 0.1 % (0.0-10.0); HEMATOCRIT 41.3 % (37.0-47.0); HEMOGLOBIN 13.7 g/dL (12.0-16.0); IMM GRAN# 0.04 X1000 (0.0-0.04); IMM GRAN% 0.2 % (0.0-0.5); LYMPH# 0.55 X1000 (1.2-3.4); LYMPH% 3.2 % (20.5-51.1); MCH 30.3 PG (27-31); MCHC 33.2 g/dL (33-37); MCV 91.4 FL (81-99); MONO% 7.1 % (1.7-9.3); MPV 10.3 FL (7.4-10.4); NEUT# 15.16 X1000 (1.4-6.5); NEUT% 89.3 % (42.2-75.2); PLT 143 X1000 (130-400); RBC 4.52 XMIL (4.2-5.4); RDW 13.4 % (11.5-14.5); WBC 16.97 X1000 (4.8-10.8)
[2018-08-22 11:44] LABS: INR 1.09; PROTIME 14.7 Seconds (11.0-16.0)
[2018-08-22 11:45] LABS: ALBUMIN 4.1 g/dL (3.5-5.0); CALCIUM 8.8 mg/dL (8.8-10.2); CREATININE 1.2 mg/dL (0.5-0.9); POTASSIUM 4.1 mmol/L (3.5-5.1); PTT 37.7 Seconds (22.3-41.8); TOTAL BILIRUBIN 1.9 mg/dL (0.20-1.00); TOTAL PROTEIN 6.9 g/dL (6.3-8.3)
[2018-08-22 11:48] LABS: INFLUENZA A NEGATIVE (NEGATIVE); INFLUENZA B NEGATIVE (NEGATIVE)
[2018-08-22] MEDS ORDERED: ROCEPHIN 1 GM in NS 50 ML IV ONE (11:49)
[2018-08-22 11:50] LABS: BILIRUBIN URINE NEGATIVE (NEGATIVE); BLOOD URINE NEGATIVE (NEGATIVE); CLARITY SL. CLOUDY (CLEAR); COLOR YELLOW; GLUCOSE URINE NEGATIVE (NEGATIVE); KETONE URINE TRACE mg/dL (NEGATIVE); LEUKOCYTES URINE 1+ (NEGATIVE); NITRITE URINE NEGATIVE (NEGATIVE); PH URINE 6.5; PROTEIN URINE 1+(30 mg/dL) mg/dL (NEGATIVE); SP GRAVITY URINE 1.015; UROBILINOGEN URINE NORMAL
--- NOTE | 2018-08-22 11:59 | Diag Imaging Result Doc PS360 ---
CHEST-2 VIEWS - 08/22/2018 INDICATION: cough/shortness of breath COMPARISON: 06/22/2018 FINDINGS: There is dense consolidation of the right middle lobe compatible with pneumonia. There is cardiomegaly. No pneumothorax or pleural effusion. IMPRESSION: 1. Dense right middle lobe consolidation compatible with pneumonia. Recommend treatment and follow-up until clear. 2. Cardiomegaly. Electronically signed by Cory Meade 08/22/2018 11:57 AM
[2018-08-22 12:03] LABS: URINE EPITHELIAL CELLS <10 /HPF (<10)
[2018-08-22 12:04] LABS: URINE BACTERIA 1+ /HFP; URINE SOURCE CLEAN CATCH
[2018-08-22] MEDS ORDERED: LEVAQUIN 500 MG/D5W 500 MG/100 ML IVPB IV SCH (12:15)
[2018-08-22 12:19] LABS: CK INDEX 2.8 (0.0-2.5); CK-MB 8.28 ng/mL (0.0-5.0)
--- NOTE | 2018-08-22 13:22 | PROVIDER DOCUMENTATION ---
This chart was entered by Beverly Anne Scribe, acting as scribe for Nuris Garza MD. HPI-Respiratory General - General Chief Complaint: Cough Stated Complaint: POSS PNEUMONIA Time Seen by Provider: 08/22/18 11:06 Source: patient Allergies/Adverse Reactions: Patient Allergies Allergy/AdvReac Type Severity Reaction Status Date / Time No Known Allergies Allergy Verified 08/22/18 10:58 Home Medications: Home Medication List Medication Instructions Recorded Confirmed Last Taken Type Biotin 1,000 cap PO DAILY 05/26/12 12/15/16 12/19/14 08:00 History Cholecalciferol (Vit D3) [Vitamin 1,000 unit PO DAILY 05/26/12 12/15/16 12/19/14 08:00 History D3] Fish Oil/Dha/Epa [Fish Oil 1,200 1 cap PO DAILY 05/26/12 12/15/16 12/19/14 08:00 History mg Fish Oil] Multivitamin [Multi-Day Vitamins] 1 tab PO DAILY 05/26/12 12/15/16 12/19/14 08:00 History Aspirin 81 mg PO DAILY #0 chewtab 12/21/14 12/15/16 Unknown Rx Esomeprazole [Nexium] 40 mg PO DAILY #0 capsule 12/21/14 12/15/16 Unknown Rx Gabapentin [Neurontin] 300 mg PO DAILY #0 capsule 12/21/14 12/15/16 Unknown Rx Oxybutynin [Ditropan] 10 mg PO DAILY 01/15/16 12/15/16 Unknown History Alprazolam 1 mg PO QHS 12/15/16 12/15/16 12/15/16 History Meloxicam 7.5 mg PO DAILY 12/15/16 12/15/16 Unknown History Amlodipine [Norvasc] 5 mg PO DAILY #30 tablet 12/21/16 Unknown Rx Estradiol Vaginal Cream [Estrace 1 gm TOP Q3DAYS #0 12/21/16 12/15/16 Unknown Rx Vaginal Cream] Hydrocodone/APAP 5 mg/325 mg 1 each PO Q6H PRN PRN #30 tablet 12/21/16 Unknown Rx [[place]-5] D-Methorphan Hb/P-Epd HCl/Bpm 118 ml PO DIRECTED PRN #120 ml 04/29/18 Unknown Rx [Bromfed Dm Cough Syrup] Guaifenesin [Guaifenesin ER] 1,200 mg PO BID #14 tab.er.12h 04/29/18 Unknown Rx Levofloxacin [Levaquin] 500 mg PO DAILY #7 tab 04/29/18 Unknown Rx Methylprednisolone [Medrol Dosepak] 4 mg PO DIRECTED #1 pkg 04/29/18 Unknown Rx Albuterol [Albuterol Neb] 2.5 mg .SEE ORDER Q4H PRN PRN 14 06/22/18 Unknown Rx Days #1 neb Nebulizer/Compressor [Hl 1 each MC PRN PRN #1 each 06/22/18 Unknown Rx Compressor Nebulizer] - History of Present Illness-Resp Nature of Presenting Problem: [address] Prater's office with cc of possible pneumonia. Pt reports she has had her flu and pna shot. Also reports cough, fever,sob and right rib pain. Reports is on home breathing treatments and inhaler. Hx of copd. Quality of Pain: reports: aching Severity in ED: reports: moderate Onset/Duration: reports: unsure Timing: reports: still present Exposure: reports: unknown cause Cough Quality/Degree: reports: dry cough Episode Frequency: occasional episodes Current Respiratory Medication Therapy: Initiated see nurses note Review of Systems - Adult - REVIEW OF SYSTEMS - ADULT Constitutional: reports: chills, fever. denies: fatique Eyes: reports: no symptoms reported Ears, Nose, Mouth & Throat: denies: ear discharge, sinus problem, throat pain Cardiovascular: denies: chest pain, irregular heart rate, syncope Respiratory: reports: cough, dyspnea on exertion, shortness of breath, wheezing. denies: pleurisy Gastrointestinal: denies: abdominal pain, nausea, vomiting Genitourinary: reports: no symptoms reported Musculoskeletal: reports: see HPI, bone pain. denies: joint pain, joint swelling, neck pain Integumentary: reports: no symptoms reported Neurological: reports: no symptoms reported Psychiatric: reports: no symptoms reported Endocrine: reports: no symptoms reported Hematologic/Lymphatic: reports: no symptoms reported Allergic/Immunologic: reports: no symptoms reported All Other Systems: Reviewed and Negative Past History - Adult - PAST MEDICAL HISTORY-ADULT Review of Records: reports: Nursing Assessment Review, Medications Reviewed Major Childhood Illnesses: reports: denies history Cardiovascular: reports: HTN Respiratory: reports: COPD, pneumonia Gastrointestinal: reports: denies history Obstetrical/Gynecological: reports: denies history Genitourinary: reports: denies history Musculoskeletal: reports: denies history Neurological: reports: denies history Endocrine/Immune: reports: denies history Other Conditions: reports: cataract/glaucoma - PRIOR SURGERIES/PROCEDURES Surgical/Procedure History: reports: cholecystectomy, other (artery repair) - IMMUNIZATION STATUS Childhood Immunizations: See Nurse Assessment Flu Vaccine: See Nurse Assessment - FAMILY HISTORY Family History: reviewed, not pertinent - SOCIAL HISTORY Smoking: other (former) Substance Use: none/never Physical Exam-General - PHYSICAL EXAM-ADULT Initial Vital Signs Reviewed: Yes - CONSTITUTIONAL General Appearance: appears well, alert, mild distress - EYES Eyes: PERRL/EOMI, pink conjunctivae - HEAD, EARS, NOSE, MOUTH & THROAT HENMT: normocephalic/atraumatic, moist mucous membranes, normal ENT inspection, TMs normal, pharynx normal - NECK Neck: non-tender, full range of motion, supple, normal inspection - RESPIRATORY Respiratory: chest non-tender, rhonchi, wheezing. negative: respiratory distress, decreased breath sounds, accessory muscle use, crackles, rales - CARDIOVASCULAR Cardiovascular: tachycardia - GASTROINTESTINAL (ABDOMEN) Abdominal Exam: normal bowel sounds, non tender, soft, no organomegaly, no pulsatile mass - LYMPHATIC Lymphatic: no adenopathy - MUSCULOSKELETAL Back Exam: normal inspection Extremity: normal range of motion, non-tender, normal gait, normal inspection, no pedal edema - SKIN Integumentary: normal color, normal turgor, warm/dry - NEUROLOGIC Neurologic: sugar boiler II-XII nml as tested, grossly normal, no motor/sensory deficits - PSYCHIATRIC Psych/Mental Status: normal mood/affect, normal thought content, normal thought process, oriented x 3 Progress - PLAN OF CARE/RESULTS Progress/Plan/Lab Results: Vital Signs - 8 hr 08/22/18 10:53 08/22/18 11:23 Temperature 101.6 F H Pulse Rate 108 H 102 H Respiratory Rate 18 22 Blood Pressure 137/83 120/71 O2 Sat by Pulse Oximetry 87 L 92 L Laboratory Results - last 24 hr 08/22/18 08/22/18 08/22/18 11:10 11:10 11:10 WBC 16.97 H RBC 4.52 Hgb 13.7 Hct 41.3 MCV 91.4 MCH 30.3 MCHC 33.2 RDW Std Deviation 13.4 Plt Count 143 MPV 10.3 Immature Gran % (Auto) 0.2 Neut % (Auto) 89.3 H Lymph % (Auto) 3.2 L Crawford % (Auto) 7.1 Eos % (Auto) 0.1 Baso % (Auto) 0.1 Immature Gran # (Auto) 0.04 Neut # (Auto) 15.16 H Lymph # (Auto) 0.55 L Crawford # (Auto) 1.20 H Eos # (Auto) 0.01 Baso # (Auto) 0.01 PT 14.7 INR 1.09 PTT (Actin FS) 37.7 Sodium 135 L Potassium 4.1 Chloride 95 L Carbon Dioxide 28 Anion Gap 13 BUN 22 Creatinine 1.2 H Estimated GFR/1.73 m2 44 BUN/Creatinine Ratio 18 Glucose 147 H Calculated Osmolality 276 Calcium 8.8 Total Bilirubin 1.90 H AST 26 ALT 20 Alkaline Phosphatase 88 Creatine Kinase 295 H Troponin T Total Protein 6.9 Albumin 4.1 Globulin 3.0 Albumin/Globulin Ratio 1.0 Plasma Lactate Urine Color Urine Clarity Urine pH Ur Specific [place] Urine Protein Urine Ketones Urine Blood Urine Nitrite Urine Bilirubin Urine Urobilinogen Urine WBC Urine Glucose Influenza A (Rapid) Influenza B (Rapid) 08/22/18 08/22/18 08/22/18 11:10 11:10 11:10 WBC RBC Hgb Hct MCV MCH MCHC RDW Std Deviation Plt Count MPV Immature Gran % (Auto) Neut % (Auto) Lymph % (Auto) Crawford % (Auto) Eos % (Auto) Baso % (Auto) Immature Gran # (Auto) Neut # (Auto) Lymph # (Auto) Crawford # (Auto) Eos # (Auto) Baso # (Auto) PT INR PTT (Actin FS) Sodium Potassium Chloride Carbon Dioxide Anion Gap BUN Creatinine Estimated GFR/1.73 m2 BUN/Creatinine Ratio Glucose Calculated Osmolality Calcium Total Bilirubin AST ALT Alkaline Phosphatase Creatine Kinase Troponin T < 0.010 Total Protein Albumin Globulin Albumin/Globulin Ratio Plasma Lactate 1.4 Urine Color YELLOW Urine Clarity SL. CLOUDY A Urine pH 6.5 Ur Specific [place] 1.015 Urine Protein 1+(30 mg/dL) A Urine Ketones TRACE Urine Blood NEGATIVE Urine Nitrite NEGATIVE Urine Bilirubin NEGATIVE Urine Urobilinogen NORMAL Urine WBC 1+ A Urine Glucose NEGATIVE Influenza A (Rapid) Influenza B (Rapid) 08/22/18 11:20 WBC RBC Hgb Hct MCV MCH MCHC RDW Std Deviation Plt Count MPV Immature Gran % (Auto) Neut % (Auto) Lymph % (Auto) Crawford % (Auto) Eos % (Auto) Baso % (Auto) Immature Gran # (Auto) Neut # (Auto) Lymph # (Auto) Crawford # (Auto) Eos # (Auto) Baso # (Auto) PT INR PTT (Actin FS) Sodium Potassium Chloride Carbon Dioxide Anion Gap BUN Creatinine Estimated GFR/1.73 m2 BUN/Creatinine Ratio Glucose Calculated Osmolality Calcium Total Bilirubin AST ALT Alkaline Phosphatase Creatine Kinase Troponin T Total Protein Albumin Globulin Albumin/Globulin Ratio Plasma Lactate Urine Color Urine Clarity Urine pH Ur Specific [place] Urine Protein Urine Ketones Urine Blood Urine Nitrite Urine Bilirubin Urine Urobilinogen Urine WBC Urine Glucose Influenza A (Rapid) NEGATIVE Influenza B (Rapid) NEGATIVE Orders Category Date Time Status Cardiac Monitoring DIRECTED Care 08/22/18 11:00 Active IV Insertion ORDERED Care 08/22/18 11:00 Completed Notify MD of + Sepsis Screen NOW Care 08/22/18 11:00 Active Notify Physician As Ordered Care 08/22/18 11:00 Active Oxygen Therapy- ED Nursing DIRECTED Care 08/22/18 11:20 Active Use ED:PneumoniaAdultSet As Ordered Care 08/22/18 10:59 Active cxr [CHEST-2 VIEWS] [RAD] Stat Exams 08/22/18 11:48 Completed BLOOD CULTURE [BLDCUL] Stat Lab 08/22/18 11:10 Ordered CBC WITH ELECTRONIC DIFF [HEME] Stat Lab 08/22/18 11:10 Completed CK PROFILE [SP CHEM] Stat Lab 08/22/18 11:10 Results COMPREHENSIVE METABOLIC PANEL [CHEM] Stat Lab 08/22/18 11:[address] Stat Lab 08/22/18 11:20 Completed LACTATE, PLASMA [CHEM] Lab 08/22/18 11:10 Completed LACTATE, PLASMA [CHEM] Lab 08/22/18 14:00 Uncollected LACTATE, PLASMA [CHEM] Lab 08/22/18 17:00 Uncollected PROTIME WITH INR [COAG] Stat Lab 08/22/18 11:10 Completed PTT [COAG] Stat Lab 08/22/18 11:10 Completed SPUTUM CULTURE WITH GRAM STAIN [RM] Routine Lab 08/22/18 11:43 Ordered TROPONIN T Stat Lab 08/22/18 11:[address] W/POSS RFLX CULT [URINALYSIS] Stat Lab 08/22/18 11:10 Results Acetaminophen [Tylenol] Med 08/22/18 11:02 Discontinued 650 mg PO NOW ONE CefTRIAXONE [Rocephin] 1 gm Med 08/22/18 11:49 Active 0.9% Sodium Chloride Inj [Ns] 50 ml IV NOW Levofloxacin 500 mg/D5w [Levaquin 500 mg/D5w] Med 08/22/18 12:15 Ordered 500 mg in 100 ml IV Q24H Oxygen Device Stat Oth 08/22/18 11:00 Active Pneumonia (suspected) Stat Oth 08/22/18 10:59 Ordered Result Diagrams: 08/22/18 11:10 08/22/18 11:10 - XRAY 1 XRAY: Bilateral XRAY Study: Chest Impression: Abnormal (IMPRESSION: 1. Dense right middle lobe consolidation compatible with pneumonia. Recommend treatment and follow-up until clear. 2. Cardiomegaly. Electronically signed by Cory Meade 08/22/2018 11:57 AM) - CONSULTS/PCP/HOSPITALIST Notification #1 *Consult/PCP/Hospitalist*: Dr. Shearer Time Discussed: 12:05 Consult Disposition: Admit Departure - Departure Date of Disposition Decision: 08/22/18 Time of Disposition Decision: 12:04 DIAGNOSIS: Pneumonia, SIRS (systemic inflammatory response syndrome) Disposition: ADMITTED INPATIENT 09 Certified Medical Emergency: Emergent Condition: Stable Referrals and Follow-Ups: Milla Prater MD [Primary Care Provider] - - Critical Care Note This patient required my direct & personal management of CC.: No Attestation - Physician/ KATHLEEN Attestation Patient care was provided by Advanced Practice Provider:: No The physician spent face to face time with patient:: Yes Advanced Practice Provider documentation review:: Supervising physician onsite and consulted in the evaluation and care of this patient. The physician did have a face to face encounter with the patient. This chart was documented by the indicated scribe, (Beverly Anne Scribe) and accurately reflects the services I performed and decisions made by me, Nuris Garza MD, as attested by the provider's signature.
[2018-08-22] MEDS ORDERED: DUONEB (A & A) INH PRN (13:36)
--- NOTE | 2018-08-22 15:05 | HISTORY AND PHYSICAL ---
ADDENDUM REPORT Patient seen and examined by me. Full note dictated and discussed with nurse practitioner. Patient presented to the hospital with a 2- to 3-day cough, congestion and fever for the past 2 days. Subsequently diagnosed in the ER with right lower lobe pneumonia. She has had a productive cough. Sputum is pending. We will admit her to the hospital, place her on antibiotics, oxygen, and breathing treatments, and we will follow. cc: Russel Shearer MD
[2018-08-22] MEDS: SOLU-MEDROL IV SCH ×2 (15:16→22:04)
[2018-08-22] MEDS: DUONEB (A & A) INH SCH ×3 (15:38→22:47)
[2018-08-22] MEDS: ZITHROMAX PO SCH (16:38)
--- NOTE | 2018-08-22 17:09 | HISTORY AND PHYSICAL ---
CHIEF COMPLAINT: Cough, shortness of breath. HISTORY OF PRESENT ILLNESS: This is a 78-year-old female who presents to the emergency room from her primary care physician's office complaining of respiratory symptoms that have been present for about 2 months. She reports over the last 3 days, she has had an increase in cough as well as congestion and fever. Chest x-ray revealed right lower lobe pneumonia. Blood cultures were obtained and she was given Rocephin. In review of the patient's past medications over the last 2 months, she has had a round of Zinacef as well as clindamycin along with a Medrol Dosepak. PAST MEDICAL HISTORY: 1. COPD. 2. Hypertension. 3. Gastroesophageal reflux disease. PAST SURGICAL HISTORY: 1. Cholecystectomy. 2. Cataract removal. ALLERGIES: No known drug allergies. HOME MEDICATIONS: A list will be obtained by the nursing staff and will review and restart it as appropriate. SOCIAL HISTORY: She denies alcohol, tobacco, or illicit drug use. REVIEW OF SYSTEMS: The patient denies any syncope, dizziness, chest pain, palpitations, any nausea, vomiting, diarrhea, constipation, black or bloody vomitus or stools, any hematuria, dysuria, frequency, urgency. PHYSICAL EXAMINATION: GENERAL: This is a 78-year-old female who is lying on the stretcher in the ER in no distress. VITAL SIGNS: Blood pressure is 104/70 with a heart rate of 99, respirations are 20 to 22, temperature is 100.3 degrees oral with O2 sats 95%-97% on 2 L nasal cannula. EYES: Pupils are equal, round, react to light. EOMs are intact. Sclerae anicteric. HEENT: Head is normocephalic, atraumatic. Mucous membranes are moist. NECK: Supple with trachea midline. CARDIOVASCULAR: Regular rate and rhythm. S1 and S2 are appreciated. She has no increased work of breathing. Calves are nontender. PULMONARY: Breath sounds are unlabored. She has wheezes scattered throughout. Chest rises and falls symmetrically with respiration. GASTROINTESTINAL: Abdomen is soft, nontender, nondistended. Bowel sounds in all 4 quadrants. GENITOURINARY: She has no CVAT nor suprapubic tenderness. NEUROLOGIC: She is alert and oriented. SKIN: Warm and dry. LABORATORY DATA: WBC is 16.9 with hemoglobin 13.7, hematocrit 41, and platelets of 143,000. Sodium 135, potassium 4.1, BUN 22, creatinine 1.2 with a glucose of 147. Urinalysis is essentially negative. Blood cultures, sputum culture, urine culture pending. Chest x-ray revealed right dense right middle lobe consolidation compatible with pneumonia and cardiomegaly. ASSESSMENT AND PLAN: 1. Right lower lobe pneumonia. Cultures have been obtained as stated above. We will start Rocephin and Zithromax and further antibiotics will be culture driven. 2. Systemic inflammatory response syndrome. We will continue with antibiotics, cultures, and IV hydration. 3. Dyspnea. This is likely secondary to #1. We will give supplemental oxygen. 4. History of chronic obstructive pulmonary disease. We will give DuoNeb q.4 hours and q.2 hours p.r.n. and steroids to taper. 5. Hypertension. We will identify her home medications and continue as appropriate. 6. For deep venous thrombosis prophylaxis, we will use Lovenox and gastrointestinal prophylaxis with Prilosec. We will start incentive spirometer by Respiratory therapy. Have the patient up in the chair with meals and p.r.n. Further treatments pending hospital course. Dictated by MILA Durbin for Russel Shearer MD This chart was documented by, MILA Durbin and accurately reflects the services performed, treatment plan and medical decisions as attested by the providers signature Russel Shearer MD. cc: MILA Durbin MD
[2018-08-23] MEDS: DUONEB (A & A) INH SCH ×6 (03:14→23:05)
[2018-08-23] MEDS: SOLU-MEDROL IV SCH ×4 (06:03→21:04)
[2018-08-23] MEDS: PRILOSEC PO SCH (06:03)
[2018-08-23 06:52] LABS: HEMATOCRIT 37.9 % (37.0-47.0); HEMOGLOBIN 12.6 g/dL (12.0-16.0); MCH 29.8 PG (27-31); MCHC 33.2 g/dL (33-37); MCV 89.6 FL (81-99); MPV 10.4 FL (7.4-10.4); RBC 4.23 XMIL (4.2-5.4); RDW 12.9 % (11.5-14.5); WBC 12.33 X1000 (4.8-10.8)
[2018-08-23 07:08] LABS: ALBUMIN 3.7 g/dL (3.5-5.0); CALCIUM 9.2 mg/dL (8.8-10.2); POTASSIUM 3.8 mmol/L (3.5-5.1); TOTAL BILIRUBIN 0.5 mg/dL (0.20-1.00); TOTAL PROTEIN 7.5 g/dL (6.3-8.3)
[2018-08-23] MEDS: ZITHROMAX PO SCH (09:26)
[2018-08-23 09:52] LABS: HEMATOCRIT 37.1 % (37.0-47.0); HEMOGLOBIN 12.4 g/dL (12.0-16.0); MCH 29.6 PG (27-31); MCHC 33.4 g/dL (33-37); MCV 88.5 FL (81-99); MPV 10.4 FL (7.4-10.4); RBC 4.19 XMIL (4.2-5.4); RDW 12.7 % (11.5-14.5); WBC 10.84 X1000 (4.8-10.8)
[2018-08-23] MEDS ORDERED: ULTRAM PO PRN (11:59)
[2018-08-23] MEDS: XANAX PO PRN ×2 (12:49→21:10)
[2018-08-23] MEDS: ROCEPHIN 1 GM in NS 50 ML IV SCH (12:50)
[2018-08-23 14:21] LABS: HEMATOCRIT 37.3 % (37.0-47.0); HEMOGLOBIN 12.5 g/dL (12.0-16.0); MCH 29.6 PG (27-31); MCHC 33.5 g/dL (33-37); MCV 88.4 FL (81-99); MPV 10.4 FL (7.4-10.4); RBC 4.22 XMIL (4.2-5.4); RDW 12.5 % (11.5-14.5); WBC 12.07 X1000 (4.8-10.8)
[2018-08-23] MEDS ORDERED: MEVACOR PO SCH (21:00)
[2018-08-23] MEDS: NEURONTIN PO SCH (21:04)
--- NOTE | 2018-08-23 22:45 | PROGRESS NOTE ---
DATE: 08/23/2018 SUBJECTIVE: Patient notes that she is still having cough, congestion and shortness of breath. Denies any fevers or chills. States that her breathing is improved. Her production to her cough is improved. OBJECTIVE: Vital signs: Temperature 97.5, pulse 90, respiratory rate 18, BP 132/70. General: Patient is awake. She is very pleasant to talk with. She is in mild current respiratory distress. HEENT: Normocephalic. Neck: Supple. Cardiovascular: Regular rate. Chest: Clear. Abdomen: Soft. Extremities: Moves all extremities. ASSESSMENT: 1. Right lower lobe pneumonia. 2. Systemic inflammatory response syndrome. 3. Dyspnea on exertion. 4. Chronic obstructive pulmonary disease with mild exacerbation. 5. Hypertension. PLAN: Overall, patient has improved. We will continue Solu-Medrol, continue Rocephin. She just received a breathing treatment and her lungs are much more clear, although she notes she had a bad night and continued to have coughing and wheezing in between treatments. Hopefully she can discharge home over the next 2 or 3 days if her symptoms continue to improve. cc: Russel Shearer MD
[2018-08-24] MEDS: DUONEB (A & A) INH SCH ×3 (03:21→12:05)
[2018-08-24 06:12] VITALS: BP 142/84
[2018-08-24] MEDS: SOLU-MEDROL IV SCH (06:16)
[2018-08-24] MEDS: PRILOSEC PO SCH (06:16)
[2018-08-24] MEDS ORDERED: BREO ELLIPTA 200/25 MCG INH INH SCH (07:30)
[2018-08-24] MEDS ORDERED: MYRBETRIQ E.R. PO SCH (09:00)
[2018-08-24] MEDS ORDERED: BENICAR PO SCH (09:00)
[2018-08-24] MEDS ORDERED: VITAMIN D PO SCH (09:00)
[2018-08-24] MEDS ORDERED: THERA M PLUS PO SCH (09:00)
[2018-08-24] MEDS: ZITHROMAX PO SCH (09:22)
[2018-08-24] MEDS: NEURONTIN PO SCH (09:23)
[2018-08-24] MEDS: ROCEPHIN 1 GM in NS 50 ML IV SCH (13:01)
--- NOTE | 2018-08-24 21:15 | DISCHARGE SUMMARY ---
ADMISSION DATE: 08/22/2018 DISCHARGE DATE: 08/24/2018 DIAGNOSES: 1. Right lower lobe pneumonia. 2. Systemic inflammatory response syndrome, resolved. 3. Dyspnea. 4. History of chronic obstructive pulmonary disease with known with no exacerbation. 5. Hypertension. DIAGNOSTICS: 1. Chest x-ray revealed dense right middle lobe consolidation compatible with pneumonia, cardiomegaly. MICROBIOLOGY: 1. Blood cultures x2 revealed no growth after 48 hours. 2. Urine culture revealed no growth. 3. Sputum culture revealed normal magda. HOSPITAL COURSE: Ms. Jacob presented to the emergency room complaining of cough and shortness of breath. She states that symptoms have been present for about 2 months. She was found to have right middle lobe pneumonia. Blood cultures returned negative. She was initially treated with Rocephin and Zithromax and she has been transitioned to Zithromax and Omnicef orally on discharge. She received DuoNeb q.4 hours and steroids to taper. Thankfully, she has improved and is ready for discharge. DISCHARGE PHYSICAL EXAMINATION: Discharge vital signs: Blood pressure is 142/84 with a heart rate of 92, respirations 18, temperature is 98.4 with O2 saturations that were 93 on room air. Cardiovascular: Regular rate and rhythm. S1 and S2 appreciated. Extremities: She has no lower extremity edema with peripheral pulses palpable x4 extremities. Calves are nontender to palpation. Pulmonary: Her breath sounds are clear with no increased work of breathing noted. Chest rises and falls symmetrically with respiration. Gastrointestinal: Abdomen is soft, nontender, nondistended with bowel sounds in all 4 quadrants. Neurologic: She is alert and oriented x3. Skin: Warm and dry. DISCHARGE MEDICATIONS: Tramadol 50 mg p.o. t.i.d., Benicar 20 mg daily. Multivitamin 1 daily, Myrbetriq 1 daily, Medrol Dosepak as directed, lovastatin 1 tablet daily, Neurontin 300 mg b.i.d., Breo Ellipta 200/25 one inhalation daily, Nexium 40 mg daily, vitamin D3 1000 daily, Omnicef 300 mg p.o. b.i.d. for 5 days. Zithromax 250 mg p.o. daily for 5 days, biotin 1 cap daily. Xanax 1 tablet b.i.d., Albuterol nebulizers q.4 hours as needed for wheezing. FOLLOW-UP: She is to follow up with her primary care physician, Dr. Milla Prater. An appointment is scheduled for 08/30/2018 at 2 p.m. She has been instructed to call to be seen sooner or return to the ER for temperature greater than 101, increasing shortness of breath, syncope, dizziness, chest pain, palpitations, any nausea, vomiting, diarrhea, black or bloody vomitus or stools or for any questions or concerns that she may have. She is being discharged home in stable condition with family members. TIME SPENT: This is a greater than 30 minute discharge. Dictated by MILA Durbin for Russel Sheraer MD This chart was documented by, MILA Durbin and accurately reflects the services performed, treatment plan and medical decisions as attested by the providers signature Russel Shearer MD. cc: MILA Durbin MD Adnan A. Seljuki, MD
--- NOTE | 2018-08-25 01:53 | DISCHARGE SUMMARY ---
ADMISSION DATE: 08/22/2018 DISCHARGE DATE: 08/24/2018 ADDENDUM: Patient seen and examined by myself. Full note dictated and discussed with nurse practitioner. On discharge, patient is awake, alert, very pleasant to talk with. She notes that she is feeling much better and is asking to go home. We will discharge her home on antibiotics, steroid tapering Dosepak. Discussed with patient that she needs to follow up outpatient with her primary care in 1 to 2 weeks. cc: Russel Shearer MD
== END 2018-08-24 13:17 | disposition home or self-care (01) | DRG 871 ==
LOC: P.ED 10:49 → P.MEDSURG 14:00
PROVIDERS: ATTEND Family Medicine
CPT/HCPCS: 71020; 71046; 80053; 81001; 82550; 82553; 83605; 84484; 85025; 85027; 85610; 85730; 87040; 87070; 87088; 87205; 87275; 87276; 87804; 94640; 94761; 94799; 96365; 96367; 99285; A9270; J0696; J1956; J2920; J2930